=== PATIENT | female | born 1925 | race Caucasian/White ===

== ENCOUNTER → 2016-10-19 | Outpatient (CLI) | payer MEDICARE, OTHER ==
[~2016-10-19] MED LIST: CONTRAST GIVEN MC PRN; IOHEXOL 240 MG/ML 50ML VIAL. PO ONE; IOHEXOL 300 MG/ML 100ML VIAL. IV ONE
--- NOTE | 2016-10-19 11:30 | KCIC ---
CT abdomen and pelvis with contrast Indication: Generalized abdominal pain. Axial imaging through the abdomen and pelvis was performed after the administration of intravenous contrast. PQRS STATEMENT One or more of the following individualized dose reduction techniques were utilized for this study: 1.Automated exposure control. 2.Adjustment of the mA and/orkVaccording to patient size. 3.Use of iterative reconstruction technique. No prior studies are available for comparison. The lung bases are clear of acute infiltrates. There is heterogeneous low density enlargement to the pancreatic head measuring approximately 3.3 x 3.4 centimeters. There is atrophy to the pancreatic body and tail as well as pancreatic ductal dilatation. Findings are highly suggestive of pancreatic neoplasm. The pancreatic mass does abut the superior mesenteric vein. There appears to be a fat plane between the mass and the right lateral border of the SMA. Intrahepatic bile ducts are also mildly prominent, however, the patient has had the gallbladder removed. There are some indeterminate low-density lesions within the liver which cannot be readily classified as cystic. The possibility of metastatic lesions cannot be entirely excluded. Largest is in the left lobe measuring 1.4 centimeters. The spleen is unremarkable. No adrenal mass is detected. The kidneys are unremarkable apart from a 3.3 centimeter cyst within the right kidney. The aorta is not aneurysmal. The small bowel loops are normal caliber. There is a large amount of stool throughout the colon suggestive of constipation. No definite abdominal or pelvic lymphadenopathy is detected. Impression: Low density mass involving the pancreatic head, with imaging features suspicious for pancreatic carcinoma. There is pancreatic ductal dilatation. There is also mild intrahepatic and extrahepatic biliary ductal dilatation. There are indeterminate low-density lesions within the liver and hepatic metastatic disease cannot be entirely excluded. No abdominal or pelvic lymphadenopathy is seen. Constipation. Electronically signed by: Deepak Gillespie MD (Oct 19, 2016 11:29:44)
== END | disposition home or self-care (01) ==
LOC: KCIC CT 09:27
PROVIDERS: ATTEND Family Medicine
DX: K59.00 Constipation, unspecified (principal)
CPT/HCPCS: 74177; 82565; Q9966; Q9967